=== PATIENT | female | born 1940 | race Caucasian/White ===

== ENCOUNTER 2024-08-25 14:18 | Observation (INO) | payer MEDICARE, SELFPAY ==
[2024-08-25] VITALS (8 sets, daily range): BP systolic 111–145; BP diastolic 51–107; BMI 24.5
[2024-08-25 10:59] LABS: % Basophils 0.3 % (0-2); % Eosinophils 0.5 % (0-6); % Immature Granulocytes 0.7 % (0-0.5); % Monocytes 3.7 % (1.7-9.3); % Neutrophils 82.8 % (42.2-75.2); Absolute Basophils 0.1 10^3/uL (0-0.2); Absolute Eosinophils 0.1 10^3/uL (0-0.7); Absolute Immature Granulocytes 0.1 10^3/uL (0-0.05); Absolute Lymphocytes 1.8 10^3/uL (1.2-3.4); Absolute Monocytes 0.5 10^3/uL (0.1-0.6); Absolute Neutrophils 12.1 10^3/uL (1.4-6.5); Hematocrit 44.1 % (37.0-47.0); Hemoglobin 15.2 g/dL (12.0-16.0); Mean Corp Hgb Conc. 34.5 g/dL (33.0-37.0); Mean Corpuscular Hgb 31.1 pg (27.0-31.0); Mean Corpuscular Volume 90.4 fL (81.0-99.0); Mean Platelet Volume 9.7 fL (7.4-10.4); Nucleated Red Blood Cells % 0 %; Platelet Count 188 10^3/uL (130-400); Red Blood Cell Count 4.88 10^6/uL (4.20-5.40); White Blood Cell Count 14.6 10^3/uL (4.8-10.8)
--- NOTE | 2024-08-25 11:07 | ED.GENMED ---
History of Present Illness
General
Chief Complaint: Abdominal Symptoms
Source: patient and family
Time Seen by Provider: 08/25/24 10:54
History of Present Illness
History of Present Illness:
This patient is an 84-year-old female with a history of dementia who presents to the emergency department with her and daughter who are at bedside and assist in history. She was reportedly feeling her usual self until the middle of the
night when she developed repeated episodes of nonbloody vomiting associated with nonbloody diarrhea and inability to tolerate p.o. No history of fever, chills, chest pain, shortness of breath, back pain, abdominal pain, or other complaints.
Patient is actually unaware that she had vomiting diarrhea and states that she just feels tired. wonders whether or not her stool was black at 1 point.
Past History
Past History
ED Past Medical History: Other (A-fib, coronary disease, dementia)
ED Past Surgical History: Cardiac
Social History
Tobacco: Non-smoker
Alcohol: None
Drug: None
Personal:
Living: with family
Phy Exam
Physical Exam
Physical Exam:
GENERAL: Alert , in no apparent distress
EYE: pupils equal and reactive
NECK: Supple, no significant adenopathy.
ENT: o/p clr, mm dry
CARDIAC: Irregularly irregular, tachycardic
LUNGS: Clear breath sounds bilaterally, no acute respiratory distress, no wheezes rales or rhonchi
ABDOMEN: Soft, without focal tenderness, no r/g, no cvat
NEUROLOGICAL: Alert, baseline dementia, no focal neuro deficits
SKIN: Warm and dry, skin intact.
MUSCULOSKELETAL: No edema, well perfused.
PSYCH: Normal and appropriate interaction.
Course
Orders/Labs/Results
Orders:
Orders
08/25/24 10:47
Complete Blood Count/With Diff Urgent
Comprehensive Metabolic Panel Urgent
08/25/24 11:07
Norovirus by PCR Urgent
SANJUANA Source: Feces/Stool
Specimen Description:
0.9% Sodium Chloride 500 ml [Nss] 500 ml IV BOLUS
Ondansetron Injectable [Zofran] 4 mg IV NOW STA
08/25/24 14:00
Admit/Transfer Patient As Directed
Co-Sign Provider:
Level of Care: Observation services
Assign to:: Medical/Surgical
Physician / Group: [email or web address]
Diagnosis: viral gastroenteritis
Code Status As Directed
Resuscitation Status: Full Code
PRN Pain Medication Management As Directed
May give lesser potent ordered pain med per pt: Yes
preference::
Protocol:: Medication orders for pain may be administered in a
manner that supports deferring to patient preference
when the pt is:
- Requesting an ordered lesser potent pain medication.
Least to most potent pain medications are defined
as: acetaminophen < NSAID < tramadol < opioids
(morphine, oxycodone, hydromorphone).
- Requesting a lesser dose of the same medication IF
ORDERED.
- Requesting a less intrusive route of administration
if both routes are prescribed by the provider (PO <
IV).
08/25/24 14:02
Stool Culture Urgent
SANJUANA Source: Feces/Stool
Specimen Description:
08/25/24 14:20
0.9% Sodium Chloride 1000 ml [Nss] 1,000 ml IV 70 mls/hr
Ondansetron Injectable [Zofran] 4 mg IV Q6HPRN PRN
08/25/24 14:20
VTE Contraindication Routine
VTE Mechanical Device Contraindication: Medical Contraindication
Pharmocologic Contraindication: Medical Contraindication
Activity As Directed
Activity Level: As Tolerated
Vital Signs As Directed
Frequency: Per unit guidelines
08/25/24 Dinner
Clear Liquid
At Your Request: Non-Participating
08/26/24 07:03
Complete Blood Count/With Diff IN AM
Comprehensive Metabolic Panel IN AM
Abnormal Lab Results
08/25/24
10:47
WBC 14.6 H 10^3/uL
(4.8-10.8)
MCH 31.1 H pg
(27.0-31.0)
RDW 15.0 H %
(11.5-14.5)
Abs Immat Gran (auto) 0.1 H 10^3/uL
(0-0.05)
Absolute Neuts (auto) 12.1 H 10^3/uL
(1.4-6.5)
Immature Gran % 0.7 H %
(0-0.5)
Neutrophils % 82.8 H %
(42.2-75.2)
Lymphocytes % 12.0 L %
(20.5-51.1)
BUN 19 H mg/dl
(7-17)
Glucose 144 H mg/dl
(70-99)
Total Bilirubin 1.6 H mg/dl
(0.2-1.3)
AST 51 H U/L
(14-36)
ALT 47 H U/L
(0-35)
08/25/24 10:47
08/25/24 10:47
Vital Signs
Initial and Last Documented VS:
Initial Vital Signs
Temp
98.4 F
08/25/24 10:38
Last Documented Vital Signs
Temp Pulse Resp BP Pulse Ox
98.0 F 74 16 115/52 98
08/26/24 07:35 08/26/24 09:39 08/26/24 07:35 08/26/24 09:39 08/26/24 08:45
*Critical Care Note
Total Time (30-74mins, 75-104mins- exclusive of procedures): Not Applicable
Update Note
Update Note:
Patient presents to the Emergency Department with ____nausea vomiting diarrhea
Number and Complexity of Problems Addressed at the Encounter
� Chronic conditions affecting care:
� Acute Exacerbation and/or Progression of Chronic Illness:
� Differential Diagnosis includes: But not limited to viral gastroenteritis, bacterial gastroenteritis, dehydration, appendicitis, etc. etc.
Amount and/or Complexity of Data to be Reviewed and Analyzed
� I performed an independent evaluation of and my interpretation is:
EKG:
CT:
Xrays:
Laboratory Studies:leukocytosis, prerenal azotemia, nonspec lft abnl (mild)
Other:
� Review of other/old records reveals:
� Clinical information was obtained by an independent historian: Daughter and who are at bedside
� Prescriptions/Medications Considered but not given:
� Further testing considered but not performed:
Risk of Complications and/or Morbidity or Mortality of Patient Management
� Social determinants of health affecting care:
� Discussion with other providers (PCP, Hospitalists, Consultants, etc):
� Escalation of care including admission/observation vs risk of discharge considered: Although questions regarding black stool, and patient is on an anticoagulant, heme test here is brown stool negative. [facility] resident
served as community recreation coordinator.
Multiple reassessments...vomiting has stopped, pt able to drink some water...however continues with generalized (nonfocal) weakness, needed 2 person assist to get to br (which is new for her). Will admit/obs, ivf/hydration, continue asessments. Do
not clinically suspect acute intra abd process, repeat abd exam wnl, no r/g. no c/o abd pain. maee equally.
ED Attending Note
-
Portions of this chart may have been created with voice recognition software.� Occasional wrong word or��sound alike� substitutions may have occurred due to the inherent limitations of voice recognition software.
Discharge Plan
Departure
Patient Disposition: Admit
Date of Disposition: 08/25/24
Time of Disposition: 13:51
Admit to: Med/Surg
Presentation/result/management discussed w/ accepting MD/DO: Hospitalist
Condition: Good
Discharge Problem:
Dehydration, Nausea vomiting and diarrhea
Interventions
Interventions:
*Risk Screen - Suicide Last Done: 08/25/24 10:40
*General Assessment Last Done: 08/25/24 15:26
*Neglect/Abuse Screening Last Done: 08/25/24 10:40
ED- Fall Risk Assessment Last Done: 08/25/24 13:20
*ED COVID-19 Vaccine History Last Done: 08/25/24 13:20
*Nursing Disposition Last Done: 08/25/24 15:26
CY-Bvkvyt-Dyitonwnxf Assessment Last Done: 08/25/24 12:28
Discharge Date and Time
Discharge Date/Time: 08/25/24 15:27
[2024-08-25 11:19] LABS: ALT (SGPT) 47 U/L (0-35); AST (SGOT) 51 U/L (14-36); Alkaline Phosphatase 73 U/L (38-126); Blood Urea Nitrogen 19 mg/dl (7-17); Calcium 9.6 mg/dl (8.4-10.2); Carbon Dioxide 28 mmol/L (22-30); Chloride 99 mmol/L (98-107); Estimated Creatinine Clearance 38 ml/min; Glucose 144 mg/dl (70-99); Potassium 3.7 mmol/L (3.5-5.1); Sodium 135 mmol/L (135-145); Total Bilirubin 1.6 mg/dl (0.2-1.3); Total Protein 6.3 g/dl (6.3-8.2); eGFR > 60.00
[2024-08-25] MEDS: NSS 500 IV (11:36)
[2024-08-25] MEDS: ZOFRAN 4 MG IV (11:36)
--- NOTE | 2024-08-25 14:02 | HPS.HSE ---
Family Physician
-
Family Physician: Jose Shea
Chief Complaint
-
vomiting, diarrhea
History of Present Illness
84-year-old female past medical history of atrial fibrillation, CAD status post stent, hypothyroidism, moderate dementia, anxiety/depression, B12 deficiency, hyperlipidemia presenting with repeated episodes of nonbloody vomiting and nonbloody
diarrhea and inability to tolerate p.o. since last night. No fevers but did have chills, and denies chest pain or shortness of breath or back pain or abdominal pain. Patient unaware of her vomiting and diarrhea and states that she feels tired. No
urinary symptoms. Daughter states patient feels foggy.
She does not smoke or drink alcohol.
Medical History
Past Medical History
Past Medical History: Reports Other (atrial fibrillation, CAD status post stent, hypothyroidism, moderate dementia, anxiety/depression, B12 deficiency, hyperlipidemia)
Past Surgical History: Reports None
Social History
Tobacco: Non-smoker
Alcohol: None
Drug: None
Family History
Family History: Not pertinent
Allergies / Home Medications
Allergies reflects when Allergies were last updated in [facility].
Home Medications with original date entered in [facility]
Allergy/Medication List:
Allergies
Allergy/AdvReac Type Severity Reaction Status Date / Time
Penicillins Allergy Unknown Verified 08/25/24 11:20
Review of Systems
-
History Source: Patient
A 12 point ROS was completed and negative except as noted: Yes
Constitutional: Reports No Symptoms
EENT: Reports No Symptoms
Respiratory: Reports No Symptoms
Cardiac: Reports No Symptoms
Abdomen/GI: Reports See HPI
: Reports No Symptoms
Musculoskeletal: Reports No Symptoms
Skin: Reports No Symptoms
Neurological: Reports No Symptoms
Endocrine: Reports No Symptoms
Hematologic/Lymphatic: Reports No Symptoms
Psych: Reports No Symptoms
Physical Exam
Vital Signs
Vital Signs
Temp Pulse Resp BP Pulse Ox
98.8 F 102 16 127/62 92
08/25/24 13:46 08/25/24 13:15 08/25/24 13:15 08/25/24 13:00 08/25/24 13:00
Physical Exam
General: Well Developed, Well Nourished and No Apparent Distress
HEENT: NormoCephalic, Moist mucous membranes and Atraumatic
Respiratory: Clear
Cardiac: S1/S2 and Regular Rhythm; No Murmur or Rub
GI: Soft, Non Tender, Non Distended and Normal Bowel Sounds; No Organomegaly
Rectal: Deferred by Provider
Musculoskeletal: No Clubbing, No Cyanosis and No Edema
Skin: No Rash
Neuro: Nonfocal/grossly intact
Laboratory Results
-
08/25/24 10:47
08/25/24 10:47
Laboratory Results
Total Bilirubin 1.6 mg/dl (0.2-1.3) H 08/25/24 10:47
AST 51 U/L (14-36) H 08/25/24 10:47
ALT 47 U/L (0-35) H 08/25/24 10:47
Alkaline Phosphatase 73 U/L (38-126) 08/25/24 10:47
Data Reviewed
-
Lab Data: Labs Reviewed by me
Old Records: Reviewed
Impression/Plan
-
IMPRESSION:
PLAN:
# Acute viral gastroenteritis
-Clear liquid diet
-IV fluids
-Zofran
-Check stool studies
Dementia
Atrial fibrillation unspecified type
-Currently in A-fib
-Continue Eliquis
-Continue metoprolol
-Continue diltiazem
CAD status post
Hypothyroidism
-Continue levothyroxine
Moderate dementia
Anxiety/depression
-Continue venlafaxine
B12 deficiency
-Continue supplement
Hyperlipidemia
-Continue Zetia, statin
Full code
DVT prophylaxis�Eliquis
Clear liquid diet
--- NOTE | 2024-08-25 16:30 | PTCARENOTE ---
pt admitted by this nurse from the ED this afternoon. pt daughters and at bedside. pt with ongoing R knee and R hip pain, gets shots in the R hip every three months. due for next one in two weeks per . pt with short term memory issues
per family and nurse assessment. does not use assistive devices but use RW with this nurse due to unsteady slow gait walking to the bathroom. continent of urine but had incontinent stools at home which lead to family bringing her here. hat placed in
toilet and brief is on patient. bed alarm set up within the room.
[2024-08-25] MEDS: NSS 1000 IV (17:11)
[2024-08-25] MEDS: ZETIA 10 MG PO (17:12)
[2024-08-25] MEDS: CARDIZEM CD 120 MG PO (17:12)
[2024-08-25] MEDS: ELIQUIS 5 MG PO (20:07)
[2024-08-25] MEDS: LOPRESSOR 12.5 MG PO (20:07)
[2024-08-25] MEDS: OSCAL 500 + D 500 MG PO (20:07)
[2024-08-25] MEDS: COMBIGAN EYE DROPS 1 DROP BOTH EYES (20:11)
[2024-08-25] MEDS: MELATONIN 5 MG PO (22:51)
[2024-08-25] MEDS: TYLENOL 650 MG PO (22:51)
[2024-08-26] MEDS: SYNTHROID 37.5 MCG PO (05:02)
[2024-08-26 07:35] VITALS: BP 115/52
[2024-08-26 07:55] LABS: % Basophils 0.3 % (0-2); % Eosinophils 0.7 % (0-6); % Immature Granulocytes 0.8 % (0-0.5); % Lymphocytes 32.1 % (20.5-51.1); % Monocytes 9.1 % (1.7-9.3); Absolute Eosinophils 0.1 10^3/uL (0-0.7); Absolute Immature Granulocytes 0.1 10^3/uL (0-0.05); Absolute Lymphocytes 2.4 10^3/uL (1.2-3.4); Absolute Monocytes 0.7 10^3/uL (0.1-0.6); Absolute Neutrophils 4.3 10^3/uL (1.4-6.5); Mean Corp Hgb Conc. 34.2 g/dL (33.0-37.0); Mean Corpuscular Hgb 31.3 pg (27.0-31.0); Mean Corpuscular Volume 91.6 fL (81.0-99.0); Nucleated Red Blood Cells % 0 %; Platelet Count 156 10^3/uL (130-400); Red Blood Cell Count 4.15 10^6/uL (4.20-5.40); Red Cell Dist. Width 15.6 % (11.5-14.5); White Blood Cell Count 7.5 10^3/uL (4.8-10.8)
[2024-08-26 08:37] LABS: ALT (SGPT) 40 U/L (0-35); AST (SGOT) 47 U/L (14-36); Alkaline Phosphatase 56 U/L (38-126); Blood Urea Nitrogen 15 mg/dl (7-17); Carbon Dioxide 28 mmol/L (22-30); Chloride 102 mmol/L (98-107); Estimated Creatinine Clearance 43 ml/min; Glucose 91 mg/dl (70-99); Potassium 3.6 mmol/L (3.5-5.1); Sodium 136 mmol/L (135-145); Total Bilirubin 0.9 mg/dl (0.2-1.3); Total Protein 5.2 g/dl (6.3-8.2); eGFR > 60.00
--- NOTE | 2024-08-26 09:14 | W.PN.HOSP.TC ---
Today's Communication/Plan
-
[facility] for lunch; possible LRD later
supportive care/IVF
PT/OT evals
Assessment / Plan
Assessment / Plan
Assessment:
Acute viral gastroenteritis
- possible Norovirus given recent family with diarrheal illness - no testing available to confirm
- if diarrhea, can send C. Diff although lower suspicion
- continue CLD - advanced to [facility] for lunch and assess tolerance
- continue IVF
- supportive care with prn Zofran
moderate Dementia, unknown subtype
Atrial fibrillation unspecified type
- Currently in A-fib
- Continue Eliquis
- Continue metoprolol
- Continue diltiazem
Hx of CAD
Hypothyroidism
- Continue levothyroxine
Anxiety/depression
- Continue venlafaxine
B12 deficiency
- Continue supplement
Hyperlipidemia
- Continue Zetia, statin
DVT ppx: Eliquis
Code: Full
Anticipated Discharge: Within 24 hours
Subjective/Interval History
-
Date of Service: August 26, 2024
no further vomiting
no diarrhea
no abd pain, f/c
Objective Data
-
Labs:
Laboratory Results
08/26/24
07:03
WBC 7.5
Hgb 13.0
Hct 38.0
Plt Count 156
Sodium 136
Potassium 3.6
Chloride 102
Carbon Dioxide 28
BUN 15
Creatinine 0.8
Glucose 91
Calcium 9.0
Total Bilirubin 0.9
AST 47 H
ALT 40 H
Alkaline Phosphatase 56
Vital Signs:
Vital Signs
Temp Pulse Resp BP Pulse Ox
98.0 F 74 16 115/52 94
08/26/24 07:35 08/26/24 07:35 08/26/24 07:35 08/26/24 07:35 08/26/24 07:35
I&O
08/25/24 08/26/24 08/27/24
06:59 06:59 06:59
Intake Total 1510 / 1510
Balance 1510 / 1510
Physical Exam
-
General: No Apparent Distress
HEENT: Normocephalic and Atraumatic
Respiratory: Negative Wheezes
Cardiac: Regular Rhythm and S1/S2
GI: Soft and Nontender
Neuro: AO x 3
Hematologic / Lymphatic: No Lymphadenopathy
Psych: Calm
Data Reviewed
-
Total Time Spent with Patient (in minutes): 41
Labs: Labs Reviewed by me
[2024-08-26] MEDS: NSS 1000 IV (09:35)
[2024-08-26] MEDS: VITAMIN B-12 500 MCG PO (09:36)
[2024-08-26] MEDS: VISBIOME 1 CAP PO (09:37)
[2024-08-26] MEDS: ELIQUIS 5 MG PO ×2 (09:37→21:40)
[2024-08-26] MEDS: BENTYL 10 MG PO (09:37)
[2024-08-26] MEDS: OSCAL 500 + D 500 MG PO ×2 (09:37→21:41)
[2024-08-26] MEDS: DESENEX/MITRAZOL/ZEASORB 1 APPLIC TOPICAL ×2 (09:37→21:40)
[2024-08-26] MEDS: COMBIGAN EYE DROPS 1 DROP BOTH EYES ×2 (09:37→21:40)
[2024-08-26] MEDS: EFFEXOR XR 75 MG PO (09:39)
[2024-08-26] MEDS: LOPRESSOR 12.5 MG PO ×2 (09:39→21:41)
[2024-08-26 14:16] VITALS: BP 79/48; BP 96/45; BP 97/46; PULSE 67; O2SAT 95
[2024-08-26 14:18] VITALS: BP 79/48; BP 96/45; BP 97/46; PULSE 67; O2SAT 95
[2024-08-26 15:20] VITALS: BP 117/51
[2024-08-26] MEDS: ZETIA 10 MG PO (17:04)
[2024-08-26] MEDS: CARDIZEM CD 120 MG PO (17:04)
[2024-08-26] MEDS: MELATONIN 5 MG PO (21:41)
[2024-08-26 23:57] VITALS: BP 93/47
[2024-08-27] MEDS: NSS 1000 IV (01:09)
--- NOTE | 2024-08-27 02:40 | PTCARENOTE ---
Patient had one inc episode of loose stool at beginning of shift. stool sample sent to lab as per orders. Continued enhanced precautions
[2024-08-27] MEDS: SYNTHROID 37.5 MCG PO (05:56)
[2024-08-27 07:55] LABS: Hematocrit 33.3 % (37.0-47.0); Hemoglobin 11.3 g/dL (12.0-16.0); Mean Corp Hgb Conc. 33.9 g/dL (33.0-37.0); Mean Corpuscular Hgb 30.6 pg (27.0-31.0); Mean Corpuscular Volume 90.2 fL (81.0-99.0); Platelet Count 132 10^3/uL (130-400); Red Blood Cell Count 3.69 10^6/uL (4.20-5.40); Red Cell Dist. Width 15.1 % (11.5-14.5); White Blood Cell Count 5.6 10^3/uL (4.8-10.8)
[2024-08-27 07:59] LABS: ALT (SGPT) 43 U/L (0-35); AST (SGOT) 51 U/L (14-36); Albumin 2.8 g/dl (3.5-5.0); Alkaline Phosphatase 46 U/L (38-126); Blood Urea Nitrogen 13 mg/dl (7-17); Calcium 8.3 mg/dl (8.4-10.2); Carbon Dioxide 25 mmol/L (22-30); Chloride 105 mmol/L (98-107); Estimated Creatinine Clearance 49 ml/min; Glucose 93 mg/dl (70-99); Potassium 3.6 mmol/L (3.5-5.1); Sodium 135 mmol/L (135-145); Total Bilirubin 0.5 mg/dl (0.2-1.3); eGFR > 60.00
[2024-08-27 08:14] VITALS: BP 131/54
[2024-08-27] MEDS: EFFEXOR XR 75 MG PO (08:16)
[2024-08-27] MEDS: OSCAL 500 + D 500 MG PO ×2 (08:16→21:23)
[2024-08-27] MEDS: VITAMIN B-12 500 MCG PO (08:16)
[2024-08-27] MEDS: LOPRESSOR 12.5 MG PO ×2 (08:16→21:23)
[2024-08-27] MEDS: BENTYL 10 MG PO (08:16)
[2024-08-27] MEDS: VISBIOME 1 CAP PO (08:16)
[2024-08-27] MEDS: ELIQUIS 5 MG PO ×2 (08:16→21:22)
[2024-08-27] MEDS: COMBIGAN EYE DROPS 1 DROP BOTH EYES ×2 (08:17→21:23)
[2024-08-27] MEDS: DESENEX/MITRAZOL/ZEASORB 1 APPLIC TOPICAL ×2 (08:17→21:23)
[2024-08-27] MEDS: NSS IV (10:36)
--- NOTE | 2024-08-27 12:34 | W.PN.HOSP.TC ---
Today's Communication/Plan
-
awaiting SNF placement
medically stable for dc
Assessment / Plan
Assessment / Plan
Assessment:
Acute viral gastroenteritis due to confirmed norovirus
- C. diff negative
- LRD and tolerating
- cap IVF
- supportive care with prn Zofran
moderate Dementia, unknown subtype
Atrial fibrillation unspecified type
- Currently in A-fib
- Continue Eliquis
- Continue metoprolol
- Continue diltiazem
Hx of CAD
Hypothyroidism
- Continue levothyroxine
Anxiety/depression
- Continue venlafaxine
B12 deficiency
- Continue supplement
Hyperlipidemia
- Continue Zetia, statin
DVT ppx: Eliquis
Code: Full
Anticipated Discharge: Within 24 hours
Subjective/Interval History
-
Date of Service: August 27, 2024
tolerating diet
no complaints
Objective Data
-
Labs:
Laboratory Results
08/27/24
07:18
WBC 5.6
Hgb 11.3 L
Hct 33.3 L
Plt Count 132
Sodium 135
Potassium 3.6
Chloride 105
Carbon Dioxide 25
BUN 13
Creatinine 0.7
Glucose 93
Calcium 8.3 L
Total Bilirubin 0.5
AST 51 H
ALT 43 H
Alkaline Phosphatase 46
Vital Signs:
Vital Signs
Temp Pulse Resp BP Pulse Ox
97.6 F 76 14 131/54 97
08/27/24 08:14 08/27/24 08:14 08/27/24 08:14 08/27/24 08:16 08/27/24 10:32
I&O
08/26/24 08/27/24 08/28/24
06:59 06:59 06:59
Intake Total 1510 / 1510 1580 / 1580
Output Total 175 / 175
Balance 1510 / 1510 1405 / 1405
Physical Exam
-
General: No Apparent Distress
HEENT: Normocephalic and Atraumatic
Respiratory: Negative Wheezes
Cardiac: Regular Rhythm and S1/S2
GI: Soft and Nontender
Genito-urinary: No Costovertebral Tender
Neuro: Awake
Hematologic / Lymphatic: No Lymphadenopathy
Psych: Calm and Apparent Dementia
Data Reviewed
-
Total Time Spent with Patient (in minutes): 41
Labs: Labs Reviewed by me
--- NOTE | 2024-08-27 13:10 | PTCARENOTE ---
pt walking to bathroom with rw but minimal assistance/ standby by this nurse. states movement is much better compared to yesterday and day before. pt in chair with chair alarm at this time and is tolerating oral intake. pt stools + for lewiso
--- NOTE | 2024-08-27 13:15 | CM ---
Reviewed the chart notes and spoke with the patient at the bedsidehe and spoke with the spouse via telephone. The patient is admitted under observational status. The [facility] letter was provided and explained. The patient nor spouse had no questions
with regards to the letter.
The patient resides with her spouse in a two story home with one step to enter. The patient has a master bedroom on first floor. The patient reports no DME/VN/SNF in the past. Discussed that PT is recommending SNF/rehab. Discuss area SNFs.
Spouse requesting referrals be sent in the area. Precert will be required. CM continues to be available to patient/family and is monitoring medical plan for needs at discharge.
Plan: Discharge to SNF/rehab once medically stable, bed secured, and precert obtained.
[2024-08-27 16:01] VITALS: BP 120/50
[2024-08-27] MEDS: CARDIZEM CD 120 MG PO (17:21)
[2024-08-27] MEDS: ZETIA 10 MG PO (17:21)
[2024-08-27] MEDS: MELATONIN 5 MG PO (21:22)
[2024-08-27 23:25] VITALS: BP 126/53
[2024-08-28] MEDS: SYNTHROID 37.5 MCG PO (06:13)
[2024-08-28 07:45] VITALS: BP 123/52
[2024-08-28] MEDS: EFFEXOR XR 75 MG PO (08:18)
[2024-08-28] MEDS: VITAMIN B-12 500 MCG PO (08:18)
[2024-08-28] MEDS: LOPRESSOR 12.5 MG PO (08:19)
[2024-08-28] MEDS: VISBIOME 1 CAP PO (08:20)
[2024-08-28] MEDS: OSCAL 500 + D 500 MG PO (08:20)
[2024-08-28] MEDS: BENTYL 10 MG PO (08:20)
[2024-08-28] MEDS: COMBIGAN EYE DROPS 1 DROP BOTH EYES (08:20)
[2024-08-28] MEDS: ELIQUIS 5 MG PO (08:20)
[2024-08-28] MEDS: DESENEX/MITRAZOL/ZEASORB 1 APPLIC TOPICAL (08:23)
--- NOTE | 2024-08-28 10:37 | CM ---
Reviewed the chart notes and spoke with the patient's spouse at the bedside. Patient's spouse wants to take patient home today with VN services. Discussed area VNs, VN was selected. Referral sent in [facility]. Patient's spouse will provide
transportation. CM continues to be available to patient/family and is monitoring medical plan for needs at discharge.
Plan: Discharge to home with VN services.
--- NOTE | 2024-08-28 14:06 | W.PN.HOSP.TC ---
Today's Communication/Plan
-
dc to home/VN today
Assessment / Plan
Assessment / Plan
Assessment:
Acute viral gastroenteritis due to confirmed norovirus
- C. diff negative
- LRD and tolerating
- cap IVF
- supportive care with prn Zofran
moderate Dementia, unknown subtype
Atrial fibrillation unspecified type
- Currently in A-fib
- Continue Eliquis
- Continue metoprolol
- Continue diltiazem
Hx of CAD
Hypothyroidism
- Continue levothyroxine
Anxiety/depression
- Continue venlafaxine
B12 deficiency
- Continue supplement
Hyperlipidemia
- Continue Zetia, statin
DVT ppx: Eliquis
Code: Full
More than 30 minutes spent in discharge including
Final examination of the patient
Summarizing hospital stay
Instructions for continuing care to all relevant caregivers
Preparation of discharge records, prescriptions, and referral forms
Total time spent (in minutes):41
Anticipated Discharge: Today
Subjective/Interval History
-
Date of Service: August 28, 2024
denies any new complaints
now agrees to home/VN
Objective Data
-
Vital Signs:
Vital Signs
Temp Pulse Resp BP Pulse Ox
97.8 F 59 18 123/52 97
08/28/24 07:45 08/28/24 08:19 08/28/24 07:45 08/28/24 08:19 08/28/24 10:45
I&O
08/27/24 08/28/24 08/29/24
06:59 06:59 06:59
Intake Total 1580 / 1580 1220 / 1220 1200 / 1200
Output Total 175 / 175
Balance 1405 / 1405 1220 / 1220 1200 / 1200
Physical Exam
-
General: No Apparent Distress
HEENT: Normocephalic and Atraumatic
Respiratory: Negative Wheezes
Cardiac: Regular Rhythm and S1/S2
GI: Soft and Nontender
Musculoskeletal: No Edema
Neuro: AO x 3
Hematologic / Lymphatic: No Lymphadenopathy
Psych: Calm
Data Reviewed
-
Total Time Spent with Patient (in minutes): 41
Labs: Labs Reviewed by me
--- NOTE | 2024-08-28 14:08 | W.DS.TRANS ---
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
-
Discharge Instructions:
Discharge Diagnosis/Procedures Norovirus infection, weakness, dehydration
Diet Low Residue
Activity As tolerated
Other Services VN
Instructions:
Stand-Alone Forms:
Changes to Home Medications: No
Discharge Medications:
DC Medications w/original date entered in [facility]
Bifidobacterium infantis 4 mg capsule (Align (B.infantis)) 4 mg PO DAILY Supplement 08/25/24
apixaban 5 mg tablet (Eliquis) 5 mg PO BID Blood Clot Prevention/Tx 08/25/24
atorvastatin 10 mg tablet (Lipitor) 10 mg PO COWART High Cholesterol 08/25/24
brimonidine 0.2 %-timolol 0.5 % eye drops 1 drp BOTH EYES BID Eye Condition 08/25/24
calcium 500 mg (as carbonate)-vitamin D3 10 mcg (400 unit) tablet (Calcium 500 + D) 1 tab PO BID Supplement 08/25/24
cyanocobalamin (vitamin B-12) 500 mcg tablet 500 mcg PO DAILY Supplement 08/25/24
dicyclomine 10 mg capsule 10 mg PO DAILY Gastrointestinal Issue 08/25/24
diltiazem HCl 120 mg capsule,24 hr,extended release 120 mg PO QPM Heart Disease/Condition 08/25/24
ezetimibe 10 mg tablet (Zetia) 10 mg PO QPM High Cholesterol 08/25/24
levothyroxine 25 mcg tablet (Synthroid) 37.5 mcg PO DAILY Thyroid 08/25/24
metoprolol tartrate 25 mg tablet 12.5 mg PO BID Blood Pressure 08/25/24
venlafaxine 75 mg capsule,extended release 24 hr (Effexor XR) 75 mg PO DAILY Depression/Anxiety 08/25/24
Home Medication Changes
Pending Results: No
Total time spent discharging patient (in min): 41
[2024-08-28 15:00] VITALS: BP 134/75
== END 2024-08-28 14:53 | disposition home health service (06) ==
LOC: 2 NORTH 14:18
PROVIDERS: Emergency Medicine; ADMITTING PHYSICIAN Hospitalist; ATTENDING PHYSICIAN Internal Medicine; EMERGENCY PHYSICIAN Emergency Medicine; FAMILY PHYSICIAN Internal Medicine
DX: A08.11 Acute gastroenteropathy due to Norwalk agent (principal); R10.9 Unspecified abdominal pain; F32.A Depression, unspecified; F03.B3 Unspecified dementia, moderate, with mood disturbance; F03.B4 Unspecified dementia, moderate, with anxiety; I48.91 Unspecified atrial fibrillation; R11.2 Nausea with vomiting, unspecified; R19.7 Diarrhea, unspecified; E86.0 Dehydration; I25.10 Atherosclerotic heart disease of native coronary artery without angina pectoris; E03.9 Hypothyroidism, unspecified; E78.5 Hyperlipidemia, unspecified; E53.8 Deficiency of other specified B group vitamins; Z95.5 Presence of coronary angioplasty implant and graft; Z88.0 Allergy status to penicillin; Z79.01 Long term (current) use of anticoagulants
CPT/HCPCS: 80053; 85025; 85027; 87045; 87046; 87324; 87427; 87449; 87798; 96361; 96374; 97163; 97167; 99284; G0378

== ENCOUNTER → 2025-05-28 11:08 | Outpatient (REF) | payer MEDICARE, SELFPAY ==
[2025-05-28 12:53] LABS: Hematocrit 40.4 % (37.0-47.0); Hemoglobin 13.7 g/dL (12.0-16.0); Mean Corp Hgb Conc. 33.9 g/dL (33.0-37.0); Mean Corpuscular Volume 91.2 fL (81.0-99.0); Nucleated Red Blood Cells % 0 %; Platelet Count 223 10^3/uL (130-400); Red Cell Dist. Width 12.2 % (11.5-14.5)
[2025-05-28 13:38] LABS: ALT (SGPT) 22 U/L (0-35); AST (SGOT) 29 U/L (14-36); Albumin 4.2 g/dl (3.5-5.0); Alkaline Phosphatase 75 U/L (38-126); Blood Urea Nitrogen 15 mg/dl (7-17); Calcium 9.8 mg/dl (8.4-10.2); Carbon Dioxide 32 mmol/L (22-30); Chloride 102 mmol/L (98-107); Glucose 91 mg/dl (70-99); HDL Cholesterol 83 mg/dl; LDL Cholesterol, Calculated 73 mg/dl; Potassium 4.2 mmol/L (3.5-5.1); Sodium 139 mmol/L (135-145); Total Protein 6.5 g/dl (6.3-8.2); Very Low Density Lipoprotein 25 mg/dl (0-30); eGFR > 60.00
[2025-05-28 14:07] LABS: TSH 1.83 uIU/ml (0.47-4.68)
== END ==
LOC: REG 11:08
PROVIDERS: ATTENDING PHYSICIAN Family Medicine
DX: G30.1 Alzheimer's disease with late onset (principal); F02.B4 Dementia in other diseases classified elsewhere, moderate, with anxiety; R60.0 Localized edema; Z13.220 Encounter for screening for lipoid disorders; I48.21 Permanent atrial fibrillation
CPT/HCPCS: 36415; 80053; 80061; 83880; 84439; 84443; 85025